=== PATIENT | female | born 1990 | race Caucasian/White ===

== ENCOUNTER → 2023-06-22 10:26 | Outpatient (CLI) | payer BC, SELFPAY ==
--- NOTE | ~2023-06-22 | US_ITS ---
EXAMINATION: US OB /maternal detail DATE: 06/22/2023 11:33 INDICATION: survey TECHNIQUE: Multiple obstetric sonographic images performed. FINDINGS: No prior studies for comparison. There is a single living fetus in breech presentation. The placenta is anterior without placenta pre via. Placental margin to the cervix is 4.3 cm. Cervical length is 3.5 cm. Amniotic fluid volume is bhagat bjectively normal. cardiac activity and movement is noted with a heart rate of 137 beats per minute. The following anatomy was identified as normal: 4 chamber heart 3 vessel cord cord insertion kidneys urinary bladder stomach spine diaphragm ventricles cisterna magna cerebellum The following biometric data were obtained: BPD: 45mm corresponds to gestational age 19 weeks 3 days. Head circumference: 173 mm corresponds to gestational age 19 weeks 6 days. Abdominal circumference: 151 mm corresponds to gestational age 20 weeks 2 days. Femur length: 29 mm corresponds to gestational age 18 weeks 6 days. Head circumference to abdominal circumference ratio: 1.14 (normal range for expected gestational age is 1.08-1.26). Estimated weight: 306 grams +/- 46 grams using Hadlock method, 35%. IMPRESSION: 1: Single living intrauterine with an estimated gestational age of 19weeks 4days by current ultrasound measurements, with an EDC of 11/12/2023 in breech presentation. 2. Normal survey. Reviewed, dictated and finalized at location A. IMPRESSION: 1: Single living intrauterine with an estimated gestational age of 19 weeks 4days by current ultrasound measurements, with an EDC of 11/12/2023 in br eech presentation. 2. Normal survey.
== END ==
PROVIDERS: PCP Nurse Practitioner Obstetrics & Gynecology; Visit Provider Nurse Practitioner Obstetrics & Gynecology
DX: Z36.9 Encounter for antenatal screening, unspecified (principal); Z3A.19 19 weeks gestation of pregnancy
CPT/HCPCS: 76805

== ENCOUNTER 2025-10-25 09:14 | Outpatient (CLI) | payer BC, SELFPAY ==
--- NOTE | ~2025-10-25 | US_ITS ---
PROCEDURE(S): Ultrasound OB /maternal detail COMPARISON(S): None. TECHNIQUE: Grayscale scanning was performed. M-mode and color Doppler FINDINGS: There is a single live intrauterine gestation. Estimated Gestational Age, (according to the first ultrasound available for this gestation): 19 weeks, 4 days. BPD: 4.6 cm HC: 17.1 cm AC: 13.9 cm FL: 2.9 cm FHR: 137/minute, which is within normal limits. RADHA, based on (the earliest available ultrasound): March 17, 2026 EFW: 280 g AFV: Grossly normal Intracranial Contents: appear normal Abdominal Wall: appears normal Abdominal/Pelvic Organs: Within normal limits. Cord Insertion: Appears normal for gestational age. Spine: Appears to be within normal limits. Limbs/Digits: Appear to be within normal limits. Placenta: Appears normal. Anterior. Umbilical Cord/Vessels: The umbilical cord within normal limits. There is a 3- vessel cord. Cervical Length: 4.6 cm. Other findings: None. IMPRESSION: Single live intrauterine gestation. No anatomic abnormalities are seen on the images submitted. Reviewed, dictated and finalized at location A. [facility]
== END 2025-10-25 09:15 | disposition home or self-care (01) ==
LOC: MICIMG 09:14
PROVIDERS: PCP Nurse Practitioner Obstetrics & Gynecology; Visit Provider Student in an Organized Health Care Education/Training Program
DX: Z36.9 Encounter for antenatal screening, unspecified (principal)
CPT/HCPCS: 76805